=== PATIENT | female | born 1945 | race Two or more races ===

== ENCOUNTER 2020-09-19 07:19 | Outpatient (CLI) | payer OTHER ==
[~2020-09-19 07:19] MED LIST: BONIVA150 MG; EVISTA60 MG; TESSALON PERLE100 MG PO; TUSSI PRES-B L120 M1 PO; ZITHROMAX200 MG PO
== END 2020-09-19 07:20 | disposition home or self-care (01) ==
LOC: PPH VACUNA 07:19
PROVIDERS: ATTEND Emergency Medicine Pediatric Emergency Medicine
DX: Z23 Encounter for immunization (principal)

== ENCOUNTER 2021-06-08 09:40 | Outpatient (CLI) | payer OTHER | END 2021-06-08 09:45 | disposition home or self-care (01) | LOC: PPH VACUNA 09:40 | PROVIDERS: ATTEND Emergency Medicine Pediatric Emergency Medicine | DX: Z23 Encounter for immunization (principal) ==

== ENCOUNTER 2021-07-25 13:50 | Outpatient (CLI) | payer OTHER | END 2021-07-25 14:01 | disposition home or self-care (01) | LOC: MAMO-SONO 13:50 | DX: N64.51 Induration of breast (principal); Z12.31 Encounter for screening mammogram for malignant neoplasm of breast; M81.6 Localized osteoporosis [Lequesne] ==

== ENCOUNTER 2021-07-25 14:48 | Outpatient (CLI) | payer OTHER | END 2021-07-25 14:49 | disposition home or self-care (01) | LOC: NUCLEAR 14:48 | DX: M81.0 Age-related osteoporosis without current pathological fracture (principal) ==

== ENCOUNTER 2022-06-03 13:03 | Outpatient (CLI) | payer OTHER | END 2022-06-03 13:13 | disposition home or self-care (01) | LOC: PPH VACUNA 13:03 | PROVIDERS: ATTEND Emergency Medicine Pediatric Emergency Medicine | DX: Z23 Encounter for immunization (principal) ==

== ENCOUNTER 2022-08-08 13:14 | Outpatient (CLI) | payer OTHER | END 2022-08-08 13:24 | disposition home or self-care (01) | LOC: PPH VACUNA 13:14 | PROVIDERS: ATTEND Emergency Medicine Pediatric Emergency Medicine | DX: Z23 Encounter for immunization (principal) ==

== ENCOUNTER 2022-09-02 13:52 | Outpatient (CLI) | payer OTHER | END 2022-09-02 13:54 | disposition home or self-care (01) | LOC: MAMO-SONO 13:52 | DX: Z12.31 Encounter for screening mammogram for malignant neoplasm of breast (principal); N64.51 Induration of breast; I10 Essential (primary) hypertension ==

== ENCOUNTER 2024-06-03 09:38 | Outpatient (CLI) | payer OTHER | END 2024-06-03 09:42 | disposition home or self-care (01) | LOC: SONOGRAMA 09:38 | PROVIDERS: ATTEND Internal Medicine Cardiovascular Disease | DX: R10.9 Unspecified abdominal pain (principal) ==

== ENCOUNTER 2025-05-10 11:15 | Outpatient (CLI) | payer OTHER | END 2025-05-10 11:21 | disposition home or self-care (01) | LOC: MAMO-SONO 11:15 | PROVIDERS: ATTEND Internal Medicine Cardiovascular Disease | DX: N60.11 Diffuse cystic mastopathy of right breast (principal); N60.12 Diffuse cystic mastopathy of left breast; Z12.31 Encounter for screening mammogram for malignant neoplasm of breast ==